=== PATIENT | male | born 1975 | race Caucasian/White ===

== ENCOUNTER 2021-08-28 14:59 | Emergency (ER) | payer MEDICARE, MEDICAID ==
[~2021-08-28] VITALS: Ht 177.8 cm; Wt 70.3 kg
[2021-08-28 15:03] VITALS: BP 103/73
[2021-08-28] MEDS ORDERED: KEPPRA XR500 MG PO (15:20)
[2021-08-28] MEDS ORDERED: TOPAMAX100 MG PO (15:21)
== END 2021-08-28 16:15 | disposition home or self-care (01) ==
LOC: M.ERS 14:59
DX: S00.03XA Contusion of scalp, initial encounter (principal); Z79.899 Other long term (current) drug therapy; Z88.1 Allergy status to other antibiotic agents; Z88.0 Allergy status to penicillin; Z88.8 Allergy status to other drugs, medicaments and biological substances; W18.39XA Other fall on same level, initial encounter; Y93.89 Activity, other specified; Y92.091 Bathroom in other non-institutional residence as the place of occurrence of the external cause; Y99.8 Other external cause status

== ENCOUNTER 2021-08-30 13:26 | Inpatient (IN) | payer MEDICARE, MEDICAID ==
[~2021-08-30] VITALS: Ht 177.8 cm; Wt 103.9 kg
[~2021-08-30 13:26] MED LIST: KEPPRA XR500 MG PO; TOPAMAX100 MG PO
[2021-08-30 13:59] LABS: URINE BILIRUBIN NEGATIVE (Negative); URINE BLOOD NEGATIVE (Negative); URINE CLARITY CLEAR; URINE COLOR YELLOW; URINE GLUCOSE-RANDOM NEGATIVE (Negative); URINE KETONES NEGATIVE (Negative); URINE LEUKOCYTES-REFLEX NEGATIVE (Negative); URINE NITRITE-REFLEX NEGATIVE (Negative); URINE PROTEIN NEGATIVE (Negative); URINE SPECIFIC GRAVITY <= 1.005 (1.005-1.030); URINE UROBILINOGEN 0.2 E.U./dl (0.2-1.0)
[2021-08-30 14:50] LABS: MCH 32.3 pg (26.0-34.0); MCHC 33.3 g/dL (28.0-37.0); MPV 9.2 fl. (7.2-11.1); NUCLEATED RBCS 1 /100WBC; RBC 2.05 mil/uL (4.50-6.00); RDW-CV 13.2 % (10.5-14.5); WBC 8.7 thou/uL (4.0-11.0)
[2021-08-30 14:53] LABS: HEMATOCRIT 19.9 % (42.0-52.0); HEMOGLOBIN 6.6 gm/dL (14.0-18.0); PLATELET COUNT* 33 thou/uL (150-400)
[2021-08-30 14:56] LABS: CALCIUM 7.7 mg/dL (8.5-10.1); CREATININE 0.9 mg/dL (0.6-1.3); POTASSIUM 3.3 mmol/L (3.5-5.1)
[2021-08-30 15:01] LABS: ALBUMIN 3.3 g/dL (3.4-5.0); TOTAL BILIRUBIN 0.2 mg/dL (<0.1-1.0); TOTAL PROTEIN 5.7 g/dL (6.4-8.2)
[2021-08-30 15:57] LABS: ABSOLUTE BASOPHILS 0.1 thou/uL (0.0-0.2); ABSOLUTE EOSINOPHILS 0.2 thou/uL (0.0-0.7); ABSOLUTE LYMPHOCYTES 4.4 thou/uL (0.8-5.3); ABSOLUTE MONOCYTES 0.4 thou/uL (0.0-1.2); ABSOLUTE NEUTROPHILS 3.6 thou/uL (1.6-8.1); ATYPICAL LYMPHS 2 %; PLATELET ESTIMATE DECREASED
--- NOTE | 2021-08-30 15:57 | EKG ---
[place] [address] ELECTROCARDIOGRAM REPORT Name: BUCKY BOWMAN Room: [place] [address] [facility]#: [id number] Admission: 08/30/21 Attend Phys: Zena Smith, Discharge: Date of : 79 Date of Service: 08/30/21 1421 Report #: [id number] THIS REPORT FOR: //name// [facility] ED Test Date: 2021-08-30 Test Time: 14:21:34 Pat Name: BUCKY BOWMAN Department: Room: [facility] Gender: M Gas Pipe Layer: SRAVAN : 1975 Requested By: Goldy Antoine Order Number: [id number] MD: Matt Holley Measurements Intervals Barrett Rate: 76 P: 40 NJ: 196 QRS: 29 QRSD: 89 T: 36 QT: 410 QTc: 462 Interpretive Statements Sinus rhythm Baseline wander in lead(s) V1 No previous ECG available for comparison Electronically Signed On 08-30-2021 15:56:31 ALBERENE [employer] by Matt Holley [email or web address] <ELECTRONICALLY SIGNED> By: Matt Holley MD, [facility] 08/30/21 1556 1421 1421 Matt Holley MD, [facility] /EPI
[2021-08-30 15:58] LABS: ANISOCYTOSIS 1+; MACROCYTES 1+; POLYCHROMASIA 1+
[2021-08-30 16:20] VITALS: BP 121/66
[2021-08-30 17:26] VITALS: BP 110/59; BP 113/65; BP 124/71; BP 142/71
[2021-08-30 20:20] VITALS: BP 142/71
[2021-08-30 22:09] VITALS: BP 124/71
[2021-08-30] MEDS ORDERED: KEPPRA XR500 MG PO (22:30)
[2021-08-30] MEDS ORDERED: EMERGEN-C 500500 MG PO (22:42)
[2021-08-30] MEDS ORDERED: CRANBERRY200 MG PO (22:43)
[2021-08-30] MEDS ORDERED: CALCIUM500 MG PO (22:44)
[2021-08-30] MEDS ORDERED: LUTEIN10 MG PO (22:45)
[2021-08-30] MEDS ORDERED: FLAX SEED OIL1 EACH PO (22:46)
[2021-08-30] MEDS ORDERED: MULTI VITAMIN1 EACH PO (22:46)
[2021-08-30] MEDS ORDERED: GLUCOSAMINE1000 MG PO (22:47)
[2021-08-31] VITALS (8 sets, daily range): BP systolic 91–128; BP diastolic 46–94
[2021-08-31 05:00] LABS: HEMATOCRIT 20.1 % (42.0-52.0); MCH 31.9 pg (26.0-34.0); MCHC 33.7 g/dL (28.0-37.0); MCV 94.6 fL (80.0-100.0); MPV 9.7 fl. (7.2-11.1); RBC 2.13 mil/uL (4.50-6.00); RDW-CV 13.3 % (10.5-14.5); WBC 6.9 thou/uL (4.0-11.0)
[2021-08-31 05:12] LABS: ALBUMIN 2.8 g/dL (3.4-5.0); CALCIUM 7.5 mg/dL (8.5-10.1); CREATININE 0.9 mg/dL (0.6-1.3); MAGNESIUM 2.2 mg/dL (1.8-2.4); POTASSIUM 3.6 mmol/L (3.5-5.1); TOTAL BILIRUBIN 0.3 mg/dL (<0.1-1.0); TOTAL PROTEIN 4.8 g/dL (6.4-8.2)
[2021-08-31 05:53] LABS: HEMOGLOBIN 6.8 gm/dL (14.0-18.0)
[2021-08-31 17:11] LABS: HEMATOCRIT 23.4 % (42.0-52.0); HEMOGLOBIN 7.8 gm/dL (14.0-18.0)
[2021-09-01 02:11] VITALS: BP 95/52
[2021-09-01 06:14] VITALS: BP 100/58
[2021-09-01 06:39] LABS: HEMATOCRIT 22.5 % (42.0-52.0); HEMOGLOBIN 7.5 gm/dL (14.0-18.0)
[2021-09-01 06:45] LABS: ABSOLUTE EOSINOPHILS 0.1 thou/uL (0.0-0.7); ABSOLUTE LYMPHOCYTES 1.6 thou/uL (0.8-5.3); ABSOLUTE MONOCYTES 0.4 thou/uL (0.0-1.2); ABSOLUTE NEUTROPHILS 3.8 thou/uL (1.6-8.1); BASOPHILS 0.4 %; EOSINOPHILS 1.9 %; HEMATOCRIT 22.3 % (42.0-52.0); HEMOGLOBIN 7.5 gm/dL (14.0-18.0); LYMPHOCYTES 26.3 %; MCH 30.3 pg (26.0-34.0); MCHC 33.7 g/dL (28.0-37.0); MCV 89.8 fL (80.0-100.0); MONOCYTES 7.3 %; MPV 8.9 fl. (7.2-11.1); NUCLEATED RBCS 0 /100WBC; PLATELET COUNT* 119 thou/uL (150-400); POLYS 64.1 %; RBC 2.48 mil/uL (4.50-6.00); RDW-CV 17.3 % (10.5-14.5)
[2021-09-01 07:53] VITALS: BP 156/88
--- NOTE | 2021-09-01 08:04 | CON ---
[address] [address] CONSULTATION Name: BUCKY BOWMAN Room: [address] IN M.R.#: [id number] Admission: 08/30/21 Attend Phys: Zena Smith MD Discharge: Date of : 79 Report #: [id number] THIS REPORT FOR: cc: Ancelmo Tucker Vincent DO Biggs, F. Douglas MD [facility] ~ DATE OF CONSULTATION: 08/31/2021 HISTORY OF PRESENT ILLNESS: The patient unfortunately cannot give a history secondary to his autism; however, his mother, who is a retired nurse, was able to give a history. He has not had any hematemesis. He has not had any bowel movements. He has had no melena or hematochezia. He apparently is feeling okay. PHYSICAL EXAMINATION: VITAL SIGNS: His pulse was 77, respirations 18, temperature 36.9, blood pressure 108/46, O2 sat 98. He has gotten 1 unit of packed cells. He has got another unit pending that will be given soon. LABORATORY DATA: His troponins are as follows: His initial troponin yesterday at 1432 was 170, at 1555, it was 156 and at 0415 this morning, it was 127. He has apparently not had any chest pain. He has not had any EKG changes. IMPRESSION: 1. Gastrointestinal bleed. 2. Elevated troponin that represents an elevation due to stress physical and emotional and as such may represent a type 2 infarct. RECOMMENDATIONS: He has got an echo scheduled for Thursday. I do not think this man can be stress tested, he should not have cardiac catheterization. As he appears to have no active cardiac issues, I will sign off. <ELECTRONICALLY SIGNED> By: Lindsay Moulton MD, FACC 09/01/21 0804 1029 [id number]. Torey Moulton MD, FACC /nt
[2021-09-01 08:24] LABS: ANISOCYTOSIS 2+; HYPOCHROMASIA 2+; POLYCHROMASIA 2+
[2021-09-01 16:00] VITALS: BP 102/75
[2021-09-01 20:00] VITALS: BP 87/63
[2021-09-02] VITALS: BP 109/56
[2021-09-02 03:56] LABS: ABSOLUTE EOSINOPHILS 0.1 thou/uL (0.0-0.7); ABSOLUTE LYMPHOCYTES 1.8 thou/uL (0.8-5.3); ABSOLUTE MONOCYTES 0.5 thou/uL (0.0-1.2); ABSOLUTE NEUTROPHILS 4.5 thou/uL (1.6-8.1); BASOPHILS 0.1 %; EOSINOPHILS 1.9 %; HEMATOCRIT 25.7 % (42.0-52.0); HEMOGLOBIN 8.4 gm/dL (14.0-18.0); LYMPHOCYTES 26.1 %; MCH 29.9 pg (26.0-34.0); MCHC 32.8 g/dL (28.0-37.0); MCV 91.1 fL (80.0-100.0); MONOCYTES 6.5 %; MPV 9.2 fl. (7.2-11.1); NUCLEATED RBCS 0 /100WBC; PLATELET COUNT* 135 thou/uL (150-400); POLYS 65.4 %; RBC 2.82 mil/uL (4.50-6.00); RDW-CV 19.1 % (10.5-14.5); WBC 6.9 thou/uL (4.0-11.0)
[2021-09-02 04:00] VITALS: BP 102/53
[2021-09-02 04:23] LABS: CALCIUM 7.7 mg/dL (8.5-10.1); CREATININE 0.9 mg/dL (0.6-1.3); POTASSIUM 3.7 mmol/L (3.5-5.1); TOTAL BILIRUBIN 0.2 mg/dL (<0.1-1.0); TOTAL PROTEIN 5.6 g/dL (6.4-8.2)
[2021-09-02 07:06] LABS: HEMOGLOBIN 7.8 g/dL (13.0-17.7)
[2021-09-02 08:00] VITALS: BP 93/52
[2021-09-02 11:30] VITALS: BP 126/61
--- NOTE | 2021-09-02 13:17 | 2DMMODE ---
[place] [address] 2 D/M-MODE ECHOCARDIOGRAM Name: BUCKY BOWMAN Room: [address] IN .R.#: [id number] Admission: 08/30/21 Attend Phys: Zena Smith, Discharge: Date of : 79 Date of Service: 09/02/21 1317 Report #: [id number] THIS REPORT FOR: cc: Ancelmo Tucker,Ancelmo Florentino,Matt Leo MD [facility] ~ APPROVED REPORT Study performed: 09/02/2021 11:26:49 EXAM: Limited 2D Echocardiogram Patient Location: In-Patient Room #: [facility] Status: routine BSA: 2.21 BP: 93/52 mmHg Rhythm: NSR Other Information Study Quality: Adequate Indications Elevated Troponin Left Ventricle The left ventricle is normal size. There is normal left ventricular wall thickness. The left ventricular systolic function is normal. The left ventricular ejection fraction is within the normal range. LVEF is 55-60%. Right Ventricle The right ventricle is normal size. The right ventricular systolic function is normal. Atria The left atrium size is normal. The right atrium size is normal. Aortic Valve The aortic valve is normal in structure. Mitral Valve The mitral valve is normal in structure. Trace mitral regurgitation. [address] [address] 2 D/M-MODE ECHOCARDIOGRAM Name: BUCKY BOWMAN Room: [address] IN M.R.#: [id number] Admission: 08/30/21 Attend Phys: Zena Smith, Discharge: Date of : 79 Date of Service: 09/02/211316 Report #: [id number] Tricuspid Valve The tricuspid valve is normal in structure. Pulmonic Valve Pulmonic valve is not well visualized. Great Vessels The aortic root is normal in size. Pericardium There is no pericardial effusion. <Conclusion> The left ventricular systolic function is normal. The left ventricular ejection fraction is within the normal range. <ELECTRONICALLY SIGNED> By: Matt Holley MD, FACC 09/02/211316 16 16 Matt Holley MD, FACC /INF
[2021-09-02 14:16] VITALS: BP 126/61
[2021-09-02 14:53] VITALS: BP 126/61
--- NOTE | 2021-09-04 15:09 | PATH ---
[address] [address] PATHOLOGY RPT PROCEDURE Name: BUCKY GUNTER Room: [address] IN .R.#: [id number] Admission: 08/30/21 Date of : 79 Discharge: 09/02/21 Report #: [id number] Path Case #: [id number] [facility] Accession Number: [id number] . 01 Material submitted: . stomach - GASTRIC BIOPSY FOR H. PYLORI. Modifiers: GASTRIC . 01 Clinical history: . ACUTE GI BLEED, ANEMIA EGD IN OR . 02 Diagnosis: Gastric biopsy: - Moderate nonspecific chronic gastritis, negative for Helicobacter pylori organisms and dysplasia. (ASIF:michelle; 09/04/2021) . Special stain: H. pylori immuno MBR 09/04/2021 1304 Local . 02 Electronically signed: . Ender Diane MD, Pathologist NPI- [id number] . 01 Gross description: . The specimen is received in formalin, labeled "Bucky Gunter gastric biopsy". Received are 4 segments of pale caraballo tissue ranging in size from 0.3-0.4 cm in maximum dimensions. The specimen is entirely submitted in cassette A1. ([facility]; 09/03/2021) NRI/NRI 09/03/2021 1739 Local . 02 Pathologist provided ICD-10: K29.50 . 02 CPT . 197944, [id number] Specimen Comment: A courtesy copy of this report has been sent to [phone] Specimen Comment: [phone], Specimen Comment: Report sent to , DR GONZALEZ / DR ARNOLD Performed at: [address], [place] [id number] MD Sher An MD Phone: [phone] Performed at: 02 [facility] [address] [place], [place] [id number] [place] [address] PATHOLOGY RPT PROCEDURE Name: BUCKY GUNTER Room: [address] IN M.R.#: [id number] Admission: 08/30/21 Date of : 79 Discharge: 09/02/21 Report #: [id number] Path Case #: [id number] MD Ender Diane MD Phone: [phone]
== END 2021-09-02 15:47 | disposition home health service (06) | DRG 378 ==
LOC: M.ERS 13:26 → M.TBA-ER 15:17 → M.2W 15:17
PROVIDERS: Internal Medicine; Internal Medicine Gastroenterology; Internal Medicine Hematology & Oncology; Physician Assistant; ADMIT Internal Medicine; ATTEND Internal Medicine
PROC: 0DB68ZX Excision of Stomach, Via Natural or Artificial Opening Endoscopic, Diagnostic (ICD-10-PCS; principal; 2021-08-30)
PROC: 30233N1 Transfusion of Nonautologous Red Blood Cells into Peripheral Vein, Percutaneous Approach (ICD-10-PCS; principal; 2021-08-30)
DX: K29.71 Gastritis, unspecified, with bleeding (principal); D62 Acute posthemorrhagic anemia; F84.0 Autistic disorder; Z20.822 Contact with and (suspected) exposure to COVID-19; D69.6 Thrombocytopenia, unspecified; E87.6 Hypokalemia; R62.50 Unspecified lack of expected normal physiological development in childhood; E66.9 Obesity, unspecified; K44.9 Diaphragmatic hernia without obstruction or gangrene; G40.909 Epilepsy, unspecified, not intractable, without status epilepticus; Z88.1 Allergy status to other antibiotic agents; Z88.0 Allergy status to penicillin; Z88.8 Allergy status to other drugs, medicaments and biological substances; Z68.32 Body mass index [BMI] 32.0-32.9, adult; E88.09 Other disorders of plasma-protein metabolism, not elsewhere classified